=== PATIENT | female | born 1965 | race Caucasian/White ===

== ENCOUNTER 2018-12-11 10:59 | Emergency (ER) | payer OTHER ==
[2018-12-11] MEDS ORDERED: HYDROXYZINE PAMOATE 25 MG CAPSULE PO ONE (11:20)
[2018-12-11] MEDS ORDERED: FAMOTIDINE 20 MG TABLET PO ONE (11:20)
--- NOTE | 2018-12-11 11:24 | ER Document Report ---
ED Medical Screen (RME) - General Chief Complaint: Chest Tightness Stated Complaint: POSSIBLE ALLERGIC REACTION Time Seen by Provider: 12/11/18 11:20 Mode of Arrival: Ambulatory Information source: Patient Notes: 52-year-old female presented to ED for chest tightness no shortness of breath. She states her skin is been sensitive and itchy for a while. 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 She is also had a vertical sleeve on her stomach a while back. Is due to arthritis and overweight. She has had bunions removed and a breast biopsy. She is also had a hysterectomy and a bladder mesh. She states she takes vitamins and yesterday who felt her skin was very sensitive and itchy so she took 50 mg of Benadryl. She states she took her vitamins this morning and is currently became very sensitive again chest was tight for him for 25 mg of Benadryl and came to the emergency room to find out why her chest was so tight. Patient is alert oriented respirations regular and unlabored speaking in full sentences. I have greeted and performed a rapid initial assessment of this patient. A comprehensive ED assessment and evaluation of the patient, analysis of test results and completion of medical decision making process will be conducted by an additional ED providers. Dictation of this chart was performed using voice recognition software; therefore, there may be some unintended grammatical errors. TRAVEL OUTSIDE OF THE [place] IN LAST 30 DAYS: No - Related Data Allergies/Adverse Reactions: Penicillins Allergy (Mild, Verified 12/11/18 11:01) Pruritis Sulfa (Sulfonamide Antibiotics) Allergy (Mild, Verified 12/11/18 11:01) Pruritis shellfish derived [Shellfish Derived] Allergy (Verified 12/11/18 11:01) hives,eyes swell Past Medical History - Past Medical History Cardiac Medical History: Reports: Hx Hypercholesterolemia, Hx Hypertension Denies: Hx Coronary Artery Disease, Hx Heart Attack Pulmonary Medical History: Denies: Hx Asthma, Hx Bronchitis, Hx COPD, Hx Pneumonia Neurological Medical History: Denies: Hx Cerebrovascular Accident, Hx Seizures Renal/ Medical History: Reports: Hx Ovarian Cysts. Denies: Hx End Stage Renal Disease, Hx Kidney Stones, Hx Peritoneal Dialysis, Hx Pelvic Inflammatory Disease Malignancy Medical History: Denies: Hx Breast Cancer, Hx Cervical Cancer, Hx Leukemia, Hx Ovarian Cancer GI Medical History: Denies: Hx Crohn's Disease, Hx Gastroesophageal Reflux Disease, Hx Hiatal Hernia, Hx Irritable Bowel, Hx Liver Failure, Hx Pancreatitis, Hx Ulcer Musculoskeltal Medical History: Reports Hx Arthritis - feet,hands,, Denies Hx Fibromyalgia, Denies Hx Muscular Dystrophy Psychiatric Medical History: Reports: Hx Depression - sometimes will over eat when depressed Denies: Hx Bipolar Disorder, Hx Post Traumatic Stress Disorder, Hx Schizophrenia Traumatic Medical History: Denies: Hx Fractures Infectious Medical History: Denies: Hx HIV Past Surgical History: Reports: Hx Cholecystectomy - has abdominal hernia, Hx Orthopedic Surgery - fartun foot. Denies: Hx Appendectomy, Hx Bowel Surgery, Hx Section, Hx Colostomy, Hx Coronary Artery Bypass Graft, Hx Gastric Bypass Surgery, Hx Herniorrhaphy, Hx Hysterectomy, Hx Mastectomy, Hx Open Heart Surgery, Hx Pacemaker, Hx Tonsillectomy, Hx Tubal Ligation - Immunizations Hx Diphtheria, Pertussis, Tetanus Vaccination: No Physical Exam - Vital signs Vitals: Temp Pulse Resp BP Pulse Ox 97.8 F 72 16 107/89 H 100 12/11/18 11:09 12/11/18 11:09 12/11/18 11:09 12/11/18 11:09 12/11/18 11:09 Course - Vital Signs Vital signs: Temp Pulse Resp BP Pulse Ox 97.8 F 72 16 107/89 H 100 12/11/18 11:09 12/11/18 11:09 12/11/18 11:09 12/11/18 11:09 12/11/18 11:09
[2018-12-11 11:53] LABS: ABSOLUTE EOSINOPHILS # (AUTO) 0.1 10^3/uL (0.0-0.6); ABSOLUTE LYMPHOCYTES (AUTO) 2.5 10^3/uL (0.5-4.7); ABSOLUTE MONOCYTES (AUTO) 0.5 10^3/uL (0.1-1.4); ABSOLUTE NEUT (AUTO) 3.8 10^3/uL (1.7-8.2); BASOPHILS % (AUTO) 0.5 % (0-2); EOSINOPHILS % (AUTO) 1.2 % (0-6); HEMATOCRIT 49.5 % (36.0-47.0); HEMOGLOBIN 16.7 g/dL (12.0-15.5); LYMPHOCYTES % (AUTO) 36.3 % (13-45); MEAN CORPUSCULAR HGB CONC 33.6 g/dL (32.0-36.0); MEAN CORPUSCULAR VOLUME 92 fl (80-97); MONOCYTES % (AUTO) 6.9 % (3-13); PLATELET COUNT 326 10^3/uL (150-450); RED BLOOD COUNT 5.36 10^6/uL (3.72-5.28); RED CELL DISTRIBUTION WIDTH 13.7 % (11.5-14.0); SEGMENTED NEUTROPHILS % (AUTO) 55.1 % (42-78); TOTAL CELLS COUNTED % (AUTO) 100 %; WHITE BLOOD COUNT 6.9 10^3/uL (4.0-10.5)
[2018-12-11 12:03] LABS: APPEARANCE,URINE CLOUDY; BILIRUBIN,URINE NEGATIVE (NEGATIVE); COLOR,URINE AMBER; GLUCOSE, URINE NEGATIVE (NEGATIVE); KETONES,URINE NEGATIVE (NEGATIVE); LEUKOCYTE ESTERASE,URINE NEGATIVE (NEGATIVE); NITRITE,URINE NEGATIVE (NEGATIVE); PROTEIN,URINE NEGATIVE (NEGATIVE); URINE SPECIFIC GRAVITY 1.014; UROBILINOGEN,URINE NEGATIVE mg/dL (<2.0)
[2018-12-11 12:06] LABS: ALANINE AMINOTRANSFERASE 26 U/L (9-52); ALBUMIN 4.7 g/dL (3.5-5.0); ALKALINE PHOSPHATASE 50 U/L (38-126); ANION GAP 10 (5-19); ASPARTATE AMINO TRANSFERASE 31 U/L (14-36); BILIRUBIN,DIRECT 0.2 mg/dL (0.0-0.4); BILIRUBIN,TOTAL 1.5 mg/dL (0.2-1.3); BLOOD UREA NITROGEN 12 mg/dL (7-20); CALCIUM 10.2 mg/dL (8.4-10.2); CARBON DIOXIDE 27 mmol/L (22-30); CHLORIDE 105 mmol/L (98-107); GLUCOSE 82 mg/dL (75-110); POTASSIUM 4.2 mmol/L (3.6-5.0); SODIUM 142.2 mmol/L (137-145)
[2018-12-11 12:17] LABS: CREATINE KINASE MB 0.55 ng/mL (<4.55)
[2018-12-11 12:19] LABS: TROPONIN I < 0.012 ng/mL
--- NOTE | 2018-12-11 12:21 | RADIOLOGY REPORT (SQ) ---
EXAM DESCRIPTION: CHEST 2 VIEWS COMPLETED DATE/TIME: 12/11/2018 11:51 am REASON FOR STUDY: chest tightness COMPARISON: None. EXAM PARAMETERS: NUMBER OF VIEWS: two views TECHNIQUE: Digital Frontal and Lateral radiographic views of the chest acquired. RADIATION DOSE: NA LIMITATIONS: none FINDINGS: LUNGS AND PLEURA: No opacities, masses or pneumothorax. No pleural effusion. MEDIASTINUM AND HILAR STRUCTURES: No masses or contour abnormalities. HEART AND VASCULAR STRUCTURES: Heart normal size. No evidence for failure. BONES: No acute findings. HARDWARE: Clips in the upper abdomen. Breast implants. OTHER: No other significant finding. IMPRESSION: NO ACUTE RADIOGRAPHIC FINDING IN THE CHEST. TECHNICAL DOCUMENTATION: JOB ID: [id number] [employer]- All Rights Reserved Reading location - IP/workstation name: [email or web address]
--- NOTE | 2018-12-11 13:06 | ER Document Report ---
ED General - General Chief Complaint: Chest Tightness Stated Complaint: POSSIBLE ALLERGIC REACTION Time Seen by Provider: 12/11/18 11:20 Mode of Arrival: Ambulatory Notes: Patient says that she had an episode last night of tightness in her chest along with itching and felt as if she was going to pass out. She took a couple of Benadryl and her symptoms subsided and she was able to sleep. She woke up this morning and felt okay but shortly thereafter, about a 45 or 9 AM, patient said that she felt as if her head was on fire. She had this hot burning sensation and went around her head and down her entire body. Her skin was actually pink- red in color like a light sunburn. Her took pictures of her legs and face and this condition. It subsided now. The patient said that she also felt shortness of breath. She took her morning medicines and took another Benadryl. In triage, patient was given Pepcid 20 mg and Vistaril 25 mg p.o. Her symptoms have now resolved. Patient has not had any new medications, foods, etc. introduced into her diet. She does have some frequent allergies, especially to shellfish, but takes Claritin on a regular basis.. Also allergic to lavender oil. Does not recall eating any shellfish in the past few days. Patient remembers taking a couple of swallows of some liquid out of a cup last night that had been washed in some solution by her daughter. She noticed it tas aaron so p.m. so she rinsed the cup out further before she drank anymore. Does not know the name of the product. 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 Not sure what the pathology is of that bone but it is being reviewed in [place] at this time. Patient has had gastric sleeve procedure. TRAVEL OUTSIDE OF THE [place] IN LAST 30 DAYS: No - Related Data Allergies/Adverse Reactions: Penicillins Allergy (Mild, Verified 12/11/18 11:01) Pruritis Sulfa (Sulfonamide Antibiotics) Allergy (Mild, Verified 12/11/18 11:01) Pruritis shellfish derived [Shellfish Derived] Allergy (Verified 12/11/18 11:01) hives,eyes swell Past Medical History - General Information source: Patient - Social History Smoking Status: Never Smoker Family History: Reviewed & Not Pertinent Patient has suicidal ideation: No Patient has homicidal ideation: No - Past Medical History Cardiac Medical History: Reports: Hx Hypercholesterolemia, Hx Hypertension Renal/ Medical History: Reports: Hx Ovarian Cysts GI Medical History: Musculoskeletal Medical History: Reports Hx Arthritis - feet,hands, Psychiatric Medical History: Reports: Hx Depression - sometimes will over eat when depressed Traumatic Medical History: Denies: Hx Fractures Infectious Medical History: Past Surgical History: Reports: Hx Cholecystectomy - has abdominal hernia, Hx Gastric Bypass Surgery, Hx Orthopedic Surgery - fartun foot - Immunizations Hx Diphtheria, Pertussis, Tetanus Vaccination: No Review of Systems - Review of Systems Notes: REVIEW OF SYSTEMS: CONSTITUTIONAL : Denies fever. EENT: Denies eye, ear, nose or mouth or throat pain or other symptoms. CARDIOVASCULAR: See HPI. RESPIRATORY: Denies cough, chest congestion, but had some shortness of breath. GASTROINTESTINAL: Denies abdominal pain or nausea, vomiting, or diarrhea. GENITOURINARY: Denies difficulty or painful urinating, urinary frequency, blood in urine. MUSCULOSKELETAL: Denies back or neck pain. Denies joint pain or swelling. SKIN: Had a generalized erythematous rash that look like sunburn. No hives. Skin felt like it was "on fire". NEUROLOGICAL: Denies LOC or altered mental status. Denies headache. Denies sensory loss or motor deficits. ALL OTHER SYSTEMS REVIEWED AND NEGATIVE. Physical Exam - Vital signs Vitals: Temp Pulse Resp BP Pulse Ox 97.8 F 72 16 107/89 H 100 12/11/18 11:09 12/11/18 11:09 12/11/18 11:09 12/11/18 11:09 12/11/18 11:09 Interpretation: Normal Notes: PHYSICAL EXAMINATION: GENERAL: Well-appearing, in no acute distress. Vital signs are all normal. Patient very comfortably knitting. HEAD: Atraumatic, normocephalic. EYES: Pupils equal round and reactive to light, extraocular movements intact. ENT: oropharynx clear without exudates. Moist mucous membranes. NECK: Normal range of motion, supple. LUNGS: Breath sounds clear and equal bilaterally. HEART: Regular rate and rhythm without murmurs. ABDOMEN: Soft, nontender. No guarding or rebound. No masses. BACK: No tenderness throughout entire back. EXTREMITIES: Normal range of motion without pain. NEUROLOGICAL: Normal speech, normal gait. Normal sensory, motor, and reflex exams. Awake, alert, and oriented x3. Cranial nerves normal. PSYCH: Normal mood, normal affect. SKIN: Warm, dry, no rashes. Course - Re-evaluation Re-evalutation: 12/11/18 13:16 Patient was given Pepcid 20 mg p.o. and Vistaril 25 mg p.o. upon arrival. All the lab studies are essentially normal. Patient has a normal EKG. Chest x- ray is also normal. - Vital Signs Vital signs: Temp Pulse Resp BP Pulse Ox 97.8 F 72 16 107/89 H 100 12/11/18 11:09 12/11/18 11:09 12/11/18 11:09 12/11/18 11:09 12/11/18 11:09 - Laboratory Result Diagrams: 12/11/18 11:32 12/11/18 11:32 Laboratory results interpreted by la: 12/11/18 12/11/18 11:32 11:32 RBC 5.36 H Hgb 16.7 H Hct 49.5 H Total Bilirubin 1.5 H - Diagnostic Test Radiology results interpreted by me: 12/11/18 13:17 Chest x-ray is normal. - EKG Interpretation by Ct EKG shows normal: Sinus rhythm Rate: Normal Rhythm: NSR Additional EKG results interpreted by la: 12/11/18 13:17 EKG is normal. No STEMI. Discharge - Discharge Clinical Impression: Allergic reaction Condition: Stable Disposition: HOME, SELF-CARE Additional Instructions: ACUTE ALLERGIC REACTION: Your symptoms are due to an allergic reaction. Allergy can cause hives, swelling of the hands, feet, and face, hoarseness, and difficulty swallowing or breathing. It may be due to exposure to medication, animal dander, foods, infection, or insect bites. Medication is a common cause, even when prior use of this same medication caused no problems. Acute treatment may include adrenalin and antihistamines. Usually, the specific allergic agent can't be identified unless repeated episodes occur. Home treatment includes the following: (1) Stop any suspicious medications. This will be discussed with you. (2) Oral antihistamines for the next four to five days. Example, diphenhydramine (Benadryl) every four hours. (3) You may also use cimetidine (Tagamet), ranitidine (Zantac), or famotidine (Pepcid) every four hours if diphenhydramine is not controlling itching and hives. (4) Avoid aspirin until the hives completely disappear. (5) Avoid hot baths or showers until the hives are completely gone. Call the doctor if faintness, difficulty swallowing, tightness in the chest, or wheezing occurs. STEROID MEDICATION: You have been given a medicine of the cortisone/steroid class. This medication is used to control inflammation or allergy. It is usually only given for a short period of time, until the acute process subsides. There are usually no side effects from short-term use of cortisone-like medications. Some persons feel an increased sense of well-being and are not sl eepy at bedtime. Long-term use of cortisone medications is best avoided, unless required for a severe condition. If your condition does not remit, or relapses after the course of corticosteroid medication, you should consult your physician. ACID-SUPPRESSING MEDICATION: You have a prescription for medicine which reduces the stomach's secretion of acid. Examples include Zantac, Tagament, and Pepcid. These drugs are often used to allow healing of ulcers or esophagitis. They may be needed to prevent recurrence of ulcers in some patients, or to prevent damage from acid reflux in the esophagus. Take all medication as prescribed, even after the pain is gone. Regular antacids may be added as needed if you have symptoms while taking this medicine. These medications sometimes are prescribed for allergic reactions because they have anti-histaminic effects and relieve the rash and itching of the reaction. There are usually no side effects from this medication. But, in rare cases and particularly in the elderly, serious problems can occur. Contact your doctor if there is fever, rash, hallucinations, confusion, or unusual bruising. Contact your doctor at once if you develop lightheadedness, black or bloody stool, or bloody vomitus. ANTIHISTAMINES: An antihistamine has been given and/or prescribed to control your symptoms. Antihistamines are used for many reasons, including itching, watering eyes, runny nose, allergic swelling, hives, and insect stings. Antihistamines may cause drowsiness, especially with the first dose. Do not operate machinery or drive while under the effects of the medication. Other common side effects include dry mouth and eyes. In older persons, antihistamines can occasionally cause urinary retention, constipation, and trouble focusing the eyes. Do not combine the medication with alcohol, or with any other medication without talking to your doctor. USE OF DIPHENHYDRAMINE: The use of diphenhydramine (Benadryl) has been recommended to control allergic symptoms. The 25 mg strength is available over- the-counter, as well as the elixir. This antihistamine is used for many symptoms. It's useful for itching, watering eyes and nose, allergic swelling, hives, and insect stings. The medication can be repeated four times daily. Age Elixir (12.5 mg/tsp) 25 mg pill 2-3 yr 1/2 tsp 4-8 yr 1 tsp 9-14 yr 2 tsp one tab adult 1-2 tabs Antihistamines may cause drowsiness, especially with the first dose. Do not operate machinery or drive while under the effects of the medication. Do not combine the medication with alcohol, or with any other medication without t alking to your doctor. FOLLOW-UP CARE: If you have been referred to a physician for follow-up care, call the physicians office for an appointment as you were instructed or within the next two days. If you experience worsening or a significant change in your symptoms, notify the physician immediately or return to the Emergency Department at any time for re-evaluation. Prescriptions: Epinephrine [Epipen] 0.3 mg IJ PRN PRN #1 auto.injct PRN Reason: Prednisone [Deltasone 10 mg Tablet] 10 mg PO ASDIR PRN #21 tablet PRN Reason:
[2018-12-11 13:19] VITALS: BP 106/72
--- NOTE | 2018-12-11 15:15 | EKG REPORT ---
SEVERITY:- NORMAL ECG - SINUS RHYTHM : Confirmed by: Scooter Duran MD 11-Dec-2018 15:14:11
== END 2018-12-11 13:19 | disposition home or self-care (01) ==
LOC: ER 10:59
DX: T78.40XA Allergy, unspecified, initial encounter (principal); R07.89 Other chest pain; L29.9 Pruritus, unspecified; R20.8 Other disturbances of skin sensation; R21 Rash and other nonspecific skin eruption; R06.02 Shortness of breath; X58.XXXA Exposure to other specified factors, initial encounter; I10 Essential (primary) hypertension; Z79.899 Other long term (current) drug therapy; Z98.84 Bariatric surgery status; Z91.013 Allergy to seafood; Z88.0 Allergy status to penicillin; Z88.2 Allergy status to sulfonamides
CPT/HCPCS: 36415; 71046; 80053; 81001; 82553; 84484; 85025; 93005; 93010; 99284

== ENCOUNTER → 2019-03-17 | Outpatient (CLI) | payer OTHER ==
--- NOTE | 2019-03-17 14:44 | RADIOLOGY REPORT (SQ) ---
EXAM DESCRIPTION: CT BONE LENGTH COMPLETED DATE/TIME: 03/17/2019 1:50 pm REASON FOR STUDY: (Q72.819)CONGENITAL SHORTENING OF UNSPECIFIED LOWER LIMB Q72.819 CONGENITAL SHORT ENING OF UNSPECIFIED LOWER LIMB COMPARISON: None. TECHNIQUE: CT scanogram of the bilateral lower extremities is performed including pelvis to ankles. Measurements of femur, tibia, and entire lower extremities performed by the radiologist and saved to PACS. All CT scanners at this facility use dose modulation, iterative reconstruction, and/or weight based d osing when appropriate to reduce radiation dose to as low as reasonably achievable (ALARA). [facility]: Dose Right [facility]: CareDose [facility]: Dose Right [facility]: Teradose 4D [facility]: GameWith RADIATION DOSE: mGy. LIMITATIONS: None. FINDINGS: RIGHT: FEMUR: 44.3 cm. TIBIA: 35.1 cm. TOTAL RIGHT LOWER EXTREMITY LENGTH: 80.5 cm. LEFT: FEMUR: 43.6 cm. TIBIA: 35 cm. TOTAL LEFT LOWER EXTREMITY LENGTH: 80 cm. IMPRESSION: LEG LENGTH MEASUREMENTS DETAILED ABOVE. TECHNICAL DOCUMENTATION: JOB ID: [id number] Quality ID # [id number]: Final reports with documentation of one or more dose reduction techniques (e.g., Au tomated exposure control, adjustment of the mA and/or kV according to patient size, use of iterative reconstruction technique) 2010 [employer]- All Rights Reserved Reading location - IP/workstation name: [email or web address]
== END ==
LOC: RAD 13:32
PROVIDERS: ATTEND Podiatrist Foot & Ankle Surgery
DX: Q72.819 Congenital shortening of unspecified lower limb (principal)
CPT/HCPCS: 77073

== ENCOUNTER 2019-06-01 15:52 | Emergency (ER) | payer OTHER ==
--- NOTE | 2019-06-01 16:26 | ER Document Report ---
ED Medical Screen (RME) - General Chief Complaint: Weakness Stated Complaint: WEAKNESS/NECK PAIN Time Seen by Provider: 06/01/19 16:18 Primary Care Provider: FLORIDALMA FARRELL PA-C [Primary Care Provider] - Follow up as needed Mode of Arrival: Ambulatory Information source: Patient Notes: 53-year-old female presents to ED for complaint of neck pain that is been going on for since Thursday. Body aches nodule to the left side of the skull, bone pain, hot and cold flashes with no fever. 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 She states last week on Thursday she got the shingles and flu shot and she already had cold symptoms. She states she went back to the doctor on Thursday because she was still feeling pretty bad. She was feeling worse today so she went into the doctor again today and they sent her to the emergency room patient states that she has had this nodule for a while on the side of her head and the doctor was supposed to put in an MRI. She states when she went in Thursday the doctor said she was going to cancel the MRI and put in for CT and she has still not had the CT. I have greeted and performed a rapid initial assessment of this patient. A comprehensive ED assessment and evaluation of the patient, analysis of test results and completion of medical decision making process will be conducted by an additional ED providers. TRAVEL OUTSIDE OF THE [place] IN LAST 30 DAYS: No - Related Data Allergies/Adverse Reactions: Penicillins Allergy (Mild, Verified 12/11/18 11:01) Pruritis Sulfa (Sulfonamide Antibiotics) Allergy (Mild, Verified 12/11/18 11:01) Pruritis shellfish derived [Shellfish Derived] Allergy (Verified 12/11/18 11:01) hives,eyes swell Past Medical History - Past Medical History Cardiac Medical History: Reports: Hx Hypercholesterolemia, Hx Hypertension Denies: Hx Coronary Artery Disease, Hx Heart Attack Pulmonary Medical History: Denies: Hx Asthma, Hx Bronchitis, Hx COPD, Hx Pneumonia Neurological Medical History: Denies: Hx Cerebrovascular Accident, Hx Seizures Renal/ Medical History: Reports: Hx Ovarian Cysts. Denies: Hx End Stage Renal Disease, Hx Kidney Stones, Hx Peritoneal Dialysis, Hx Pelvic Inflammatory Disease Malignancy Medical History: Denies: Hx Breast Cancer, Hx Cervical Cancer, Hx Leukemia, Hx Ovarian Cancer GI Medical History: Denies: Hx Crohn's Disease, Hx Gastroesophageal Reflux Disease, Hx Hiatal Hernia, Hx Irritable Bowel, Hx Liver Failure, Hx Pancreatitis, Hx Ulcer Musculoskeltal Medical History: Reports Hx Arthritis - feet,hands,, Denies Hx Fibromyalgia, Denies Hx Muscular Dystrophy Psychiatric Medical History: Reports: Hx Depression - sometimes will over eat when depressed Denies: Hx Bipolar Disorder, Hx Post Traumatic Stress Disorder, Hx Schizophrenia Traumatic Medical History: Denies: Hx Fractures Infectious Medical History: Denies: Hx HIV Past Surgical History: Reports: Hx Cholecystectomy - has abdominal hernia, Hx Gastric Bypass Surgery, Hx Orthopedic Surgery - fartun foot. Denies: Hx Appendectomy, Hx Bowel Surgery, Hx Section, Hx Colostomy, Hx Coronary Artery Bypass Graft, Hx Herniorrhaphy, Hx Hysterectomy, Hx Mastectomy, Hx Open Heart Surgery, Hx Pacemaker, Hx Tonsillectomy, Hx Tubal Ligation - Immunizations Hx Diphtheria, Pertussis, Tetanus Vaccination: No Physical Exam - Vital signs Vitals: Temp Pulse Resp BP Pulse Ox 97.5 F 65 16 122/78 100 06/01/19 16:12 06/01/19 16:12 06/01/19 16:12 06/01/19 16:12 06/01/19 16:12 Course - Vital Signs Vital signs: Temp Pulse Resp BP Pulse Ox 97.5 F 65 16 122/78 100 06/01/19 16:12 06/01/19 16:12 06/01/19 16:12 06/01/19 16:12 06/01/19 16:12 Doctor's Discharge - Discharge Referrals: FLORIDALMA FARRELL PA-C [Primary Care Provider] - Follow up as needed
[2019-06-01] MEDS ORDERED: ACETAMINOPHEN 325 MG TABLET PO ONE (16:27)
[2019-06-01 17:28] LABS: ABSOLUTE BASOPHILS # (AUTO) 0.1 10^3/uL (0.0-0.2); ABSOLUTE EOSINOPHILS # (AUTO) 0.2 10^3/uL (0.0-0.6); ABSOLUTE LYMPHOCYTES (AUTO) 2.8 10^3/uL (0.5-4.7); ABSOLUTE MONOCYTES (AUTO) 0.5 10^3/uL (0.1-1.4); ABSOLUTE NEUT (AUTO) 3.6 10^3/uL (1.7-8.2); BASOPHILS % (AUTO) 0.9 % (0-2); EOSINOPHILS % (AUTO) 3.1 % (0-6); HEMATOCRIT 43.4 % (36.0-47.0); LYMPHOCYTES % (AUTO) 38.8 % (13-45); MEAN CORPUSCULAR HGB CONC 34.5 g/dL (32.0-36.0); MEAN CORPUSCULAR VOLUME 93 fl (80-97); MONOCYTES % (AUTO) 7.3 % (3-13); PLATELET COUNT 456 10^3/uL (150-450); RED BLOOD COUNT 4.69 10^6/uL (3.72-5.28); RED CELL DISTRIBUTION WIDTH 12.5 % (11.5-14.0); SEGMENTED NEUTROPHILS % (AUTO) 49.9 % (42-78); TOTAL CELLS COUNTED % (AUTO) 100 %; WHITE BLOOD COUNT 7.3 10^3/uL (4.0-10.5)
[2019-06-01 17:33] LABS: APPEARANCE,URINE SLIGHTLY-CLOUDY; BILIRUBIN,URINE NEGATIVE (NEGATIVE); COLOR,URINE YELLOW; GLUCOSE, URINE NEGATIVE (NEGATIVE); KETONES,URINE NEGATIVE (NEGATIVE); PROTEIN,URINE NEGATIVE (NEGATIVE); URINE SPECIFIC GRAVITY 1.023; UROBILINOGEN,URINE NEGATIVE mg/dL (<2.0)
[2019-06-01 17:45] LABS: ALBUMIN 4.6 g/dL (3.5-5.0); ALKALINE PHOSPHATASE 49 U/L (38-126); ANION GAP 9 (5-19); ASPARTATE AMINO TRANSFERASE 33 U/L (14-36); BILIRUBIN,TOTAL 0.3 mg/dL (0.2-1.3); BLOOD UREA NITROGEN 16 mg/dL (7-20); CALCIUM 9.6 mg/dL (8.4-10.2); CARBON DIOXIDE 28 mmol/L (22-30); CHLORIDE 101 mmol/L (98-107); GLUCOSE 85 mg/dL (75-110); POTASSIUM 4.2 mmol/L (3.6-5.0); TOTAL PROTEIN 7.6 g/dL (6.3-8.2)
--- NOTE | 2019-06-01 21:32 | ER Document Report ---
ED General - General Chief Complaint: General Weakness Stated Complaint: WEAKNESS/NECK PAIN Time Seen by Provider: 06/01/19 16:18 Primary Care Provider: FLORIDALMA FARRELL PA-C [NO LOCAL MD] - Follow up in 1 week Mode of Arrival: Ambulatory TRAVEL OUTSIDE OF THE [place] IN LAST 30 DAYS: No - HPI Notes: 53-year-old female to the emergency department with complaints of fatigue as well as left-sided headache and neck pain that has been ongoing for over 1 week. She states that her symptoms started after she got the flu and shingles shot. 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 In October of this year Dr. Sergo Garcia [place] on the left side and found her to have fibrous dysplasia. She is supposed to have yearly monitoring with CT scan. She states that she feels like that side of the school is swollen as well as her neck. She states that she saw her primary care today and they asked her to come to the emergency department for further CT scan. She denies any fevers or chills. She states that she has been experiencing severe fatigue. She denies any other complaints today - Related Data Allergies/Adverse Reactions: Penicillins Allergy (Mild, Verified 12/11/18 11:01) Pruritis Sulfa (Sulfonamide Antibiotics) Allergy (Mild, Verified 12/11/18 11:01) Pruritis shellfish derived [Shellfish Derived] Allergy (Verified 12/11/18 11:01) hives,eyes swell Past Medical History - General Information source: Patient - Social History Smoking Status: Never Smoker Chew tobacco use (# tins/day): No Frequency of alcohol use: None Drug Abuse: None Family History: Reviewed & Not Pertinent Patient has suicidal ideation: No Patient has homicidal ideation: No - Past Medical History Cardiac Medical History: Reports: Hx Hypercholesterolemia, Hx Hypertension Denies: Hx Coronary Artery Disease, Hx Heart Attack Pulmonary Medical History: Denies: Hx Asthma, Hx Bronchitis, Hx COPD, Hx Pneumonia Neurological Medical History: Denies: Hx Cerebrovascular Accident, Hx Seizures Renal/ Medical History: Reports: Hx Ovarian Cysts. Denies: Hx End Stage Renal Disease, Hx Kidney Stones, Hx Peritoneal Dialysis, Hx Pelvic Inflammatory Disease Malignancy Medical History: Denies: Hx Breast Cancer, Hx Cervical Cancer, Hx Rocío kemia, Hx Ovarian Cancer GI Medical History: Denies: Hx Crohn's Disease, Hx Gastroesophageal Reflux Disease, Hx Hiatal Hernia, Hx Irritable Bowel, Hx Liver Failure, Hx Pancrea titis, Hx Ulcer Musculoskeletal Medical History: Reports Hx Arthritis - feet,hands,, Denies Hx Fibromyalgia, Denies Hx Muscular Dystrophy Psychiatric Medical History: Reports: Hx Depression - sometimes will over eat when depressed Denies: Hx Bipolar Disorder, Hx Post Traumatic Stress Disorder, Hx Schizophrenia Traumatic Medical History: Denies: Hx Fractures Infectious Medical History: Denies: Hx HIV Past Surgical History: Reports: Hx Cholecystectomy - has abdominal hernia, Hx Gastric Bypass Surgery, Hx Orthopedic Surgery - fartun foot. Denies: Hx Appendectomy, Hx Bowel Surgery, Hx Section, Hx Colostomy, Hx Coronary Artery Bypass Graft, Hx Herniorrhaphy, Hx Hysterectomy, Hx Mastectomy, Hx Open Heart Surgery, Hx Pacemaker, Hx Tonsillectomy, Hx Tubal Ligation - Immunizations Hx Diphtheria, Pertussis, Tetanus Vaccination: No Review of Systems - Review of Systems Constitutional: Malaise. denies: Chills, Fever EENT: denies: Ear pain, Throat pain Cardiovascular: denies: Chest pain, Palpitations, Orthopnea, Dyspnea, Syncope, Dizziness, Lightheaded Respiratory: denies: Cough, Short of breath Gastrointestinal: denies: Abdominal pain, Diarrhea, Nausea, Vomiting Musculoskeletal: Neck pain Neurological/Psychological: Headaches -: Yes All other systems reviewed and negative Physical Exam - Vital signs Vitals: Temp Pulse Resp BP Pulse Ox 97.5 F 65 16 122/78 100 06/01/19 16:12 06/01/19 16:12 06/01/19 16:12 06/01/19 16:12 06/01/19 16:12 Interpretation: Normal - General General appearance: Appears well, Alert - HEENT Head: Normocephalic, Atraumatic Eyes: Normal, Scleral icterus Pupils: PERRL Ears: Normal External canal: Normal Tympanic membrane: Normal Sinus: Normal Nasal: Normal Mouth/Lips: Normal Mucous membranes: Normal Pharynx: Normal. No: Potential airway comprom. Neck: Normal. No: Lymphadenopathy, Meningismus, Supple Notes: to the posterior neck there is mild TTP. Patient reports that it is swollen. There isn't yehuda discernible edema. No skin changes. No step off or deformity. There is no nuchal rigidity. Along the left side of the temporal bone, there is noted craniotomy scar with slightly raised scar. No step off or crepitus. - Respiratory Respiratory status: No respiratory distress Chest status: Nontender Breath sounds: Normal Chest palpation: Normal - Cardiovascular Rhythm: Regular Heart sounds: Normal auscultation Murmur: No - Abdominal Inspection: Normal Distension: No distension Bowel sounds: Normal Tenderness: Nontender Organomegaly: No organomegaly - Back Back: Normal, Nontender - Extremities General upper extremity: Normal inspection, Nontender, Normal color, Normal ROM, Normal temperature General lower extremity: Normal inspection, Nontender, Normal color, Normal ROM, Normal temperature, Normal weight bearing - Neurological Neuro grossly intact: Yes Cognition: Normal Orientation: AAOx4 Mario Coma Scale Eye Opening: Spontaneous Girard Coma Scale Verbal: Oriented Mario Coma Scale Motor: Obeys Commands Girard Coma Scale Total: 15 Speech: Normal Motor strength normal: LUE, RUE, LLE, RLE Sensory: Normal - Psychological Associated symptoms: Normal affect, Normal mood - Skin Skin Temperature: Warm Skin Moisture: Dry Skin Color: Normal Course - Re-evaluation Re-evalutation: Impression: Neck pain, headache. Labs are reassuring. Imaging studies reassuring. Patient does not appear toxic and her vital signs are reassuring. Doubt infectious etiology. Will have her follow up further with her PCP and neurosurgeon who performed her craniotomy. Patient agrees with the plan. - Vital Signs Vital signs: Temp Pulse Resp BP Pulse Ox 97.7 F 62 16 130/86 H 98 06/02/19 00:34 06/02/19 00:34 06/02/19 00:34 06/02/19 00:34 06/02/19 00:34 - Laboratory Result Diagrams: 06/01/19 17:00 06/01/19 17:00 Laboratory results interpreted by me: 06/01/19 17:00 Plt Count 456 H - Diagnostic Test Radiology reviewed: Image reviewed, Reports reviewed Discharge - Discharge Clinical Impression: Neck pain Headache Qualifiers: Headache type: unspecified Headache chronicity pattern: acute headache Intractability: not intractable Qualified Code(s): R51 - Headache Condition: Stable Disposition: HOME, SELF-CARE Additional Instructions: FOLLOW UP WITH YOUR PRIMARY CARE AND NEUROSURGEON WITHOUT FAIL. TAKE MEDICINES PRESCRIBED. RETURN IF SYMPTOMS WORSEN. Prescriptions: Cyclobenzaprine HCl [Flexeril 5 mg Tablet] 1 - 2 tab PO TID PRN #15 tablet PRN Reason: Referrals: FLORIDALMA FARRELL PA-C [NO LOCAL MD] - Follow up in 1 week
--- NOTE | 2019-06-01 23:16 | RADIOLOGY REPORT (SQ) ---
EXAM: CT HEAD WITHOUT IV CONTRAST, CT CERVICAL SPINE WITHOUT IV CONTRAST CLINICAL INDICATION: 53-year-old female with posterior neck pain and swelling. COMPARISON: None. TECHNIQUE: CT brain without contrast. This exam was performed according to our departmental dose optimization program which includes use of automated exposure control, adjustment of the mA and/or kV according to patient size and/or use of iterative reconstruction technique. FINDINGS: The ventricles, sulci, and cisterns are symmetric and unremarkable. The souza-white matter differentiation is preserved. There is no mass effect, midline shift, intra- or extra-axial fluid collection/acute hemorrhage. The osseous structures reveal postoperative change of a craniotomy of the LEFT pterional region otherwise unremarkable. The paranasal sinuses and mastoid air cells are clear. IMPRESSION: 1. No acute intracranial abnormalities. TECHNIQUE: Cervical spine CT was performed without contrast. Multiplanar reformatted images were provided. This exam was performed according to our departmental dose optimization program which includes use of automated exposure control, adjustment of the mA and/or kV according to patient size and/or use of iterative reconstruction technique. COMPARISON: None. FINDINGS: There is normal alignment of the cervical spine without fracture or subluxation. The facets are normal in alignment bilaterally. The posterior elements including the spinous processes are intact. Straightening of the cervical spine which may be secondary to positioning for the examination. Morphology and attenuation of the vertebral bodies and intervertebral disk spaces is within normal limits. The pre-and paravertebral soft tissues are within normal limits. IMPRESSION: 1. Straightening of the cervical spine which may be secondary to positioning for the examination versus spasm. 2. No fracture or acute subluxation.
[2019-06-01] MEDS ORDERED: KETOROLAC TROMETHAMINE 60 MG/2 ML SDV IM ONE (23:54)
[2019-06-01] MEDS ORDERED: CYCLOBENZAPRINE HCL 10 MG TABLET PO ONE (23:54)
[2019-06-02 01:00] VITALS: BP 130/86
== END 2019-06-02 00:34 | disposition home or self-care (01) ==
LOC: ER 15:52
DX: M54.2 Cervicalgia (principal); R53.1 Weakness; Z88.0 Allergy status to penicillin; Z88.2 Allergy status to sulfonamides; Z91.013 Allergy to seafood
CPT/HCPCS: 99284; 96372; 36415; 83690; 84443; 85025; 80053; 81001; 70450; 72125; J1885

== ENCOUNTER → 2019-09-07 | Outpatient (CLI) | payer OTHER | LOC: OD 10:24 | PROVIDERS: ATTEND Otolaryngology | DX: J30.9 Allergic rhinitis, unspecified (principal) | CPT/HCPCS: 36415; 82785; 86003 ==

== ENCOUNTER → 2019-09-13 | Outpatient (CLI) | payer OTHER ==
--- NOTE | 2019-09-13 12:40 | NEURO WORKBENCH EEG REPORT ---
EEG Report Patient: Marcy Montiel ID: [id number] Referring Doctor: Henry Fraser MD DOS: 09/13/2019 Medications: Voltare, cadista, levofloxacin, loratadine, Zoloft History This is a 53 year old right handed woman with a history of hypertension, arthritis, metal plate, fibrous dysplasia. This EEG was requested for headaches. EEG Interpretation This EEG was recorded in the awake, drowsy, and sleep states. The awake EEG is characterized by a well-organized background with a well-developed posterior dominant rhythm of 10Hz. There was higher amplitude with periods of bursts of further increased amplitude activity that does not evolve in the alpha and beta frequencies in the left temporal region (maximum T3). Drowsiness was characterized by slowing of the background rhythms. Vertex waves and sleep spindles were seen in the midline head regions. Photic stimulation resulted in a moderate driving response. Hyperventilation resulted in no significant changes. There were no epileptiform abnormalities. The EKG showed a regular rhythm. EEG Classification Breach rhythm EEG Impression This EEG is abnormal. The intermittent higher amplitude left temporal activity could be consistent with breach rhythm. Clinical correlation is required. INTERPRETING NEUROLOGIST: Ayaka Samuel MD, FRCPC Board Certified in Neurology, with special qualification in Child Neurology, and in Clinical Neurophysiology [facility]
== END ==
LOC: NEURO 07:50
PROVIDERS: ATTEND Pediatrics
DX: M85.00 Fibrous dysplasia (monostotic), unspecified site (principal); R41.0 Disorientation, unspecified; R51 Headache
CPT/HCPCS: 95819

== ENCOUNTER 2019-12-15 20:32 | Emergency (ER) | payer OTHER ==
[2019-12-15] MEDS ORDERED: MECLIZINE HCL 25 MG TABLET PO ONE (21:43)
--- NOTE | 2019-12-15 21:53 | ER Document Report ---
ED General - General Chief Complaint: Neck Problem Stated Complaint: SHORTNESS OF BREATH Primary Care Provider: GAIL EDUARDO MD [ACTIVE STAFF] - Follow up as needed Notes: 53 y/o female presenting to the ER with neck pain and dizziness x 2 days. Reports no acute trauma to her neck. Feels like the room is spinning around her with movements, neck pain and dizziness is exacerbated with neck flexion. She also notes some vision blurriness and muscular low back pain. Neck pain has been constant. Her concern was that her dizziness became worse today. Has been sleeping without a pillow the last few nights. Denies any numbness/tingling in extremities. No facial weakness. Denies any fever, chills, headaches. TRAVEL OUTSIDE OF THE [place] IN LAST 30 DAYS: No - Related Data Allergies/Adverse Reactions: Penicillins Allergy (Mild, Verified 12/15/19 20:52) Pruritis Sulfa (Sulfonamide Antibiotics) Allergy (Mild, Verified 12/15/19 20:52) Pruritis shellfish derived [Shellfish Derived] Allergy (Verified 12/15/19 20:52) hives,eyes swell Home Medications: amytriptaline, zoloft Past Medical History - Social History Smoking Status: Former Smoker Frequency of alcohol use: Social Family History: Reviewed & Not Pertinent Patient has homicidal ideation: No - Past Medical History Cardiac Medical History: Reports: Hx Hypercholesterolemia, Hx Hypertension Denies: Hx Coronary Artery Disease, Hx Heart Attack Pulmonary Medical History: Denies: Hx Asthma, Hx Bronchitis, Hx COPD, Hx Pneumonia Neurological Medical History: Denies: Hx Cerebrovascular Accident, Hx Seizures Renal/ Medical History: Reports: Hx Ovarian Cysts. Denies: Hx End Stage Renal Disease, Hx Kidney Stones, Hx Peritoneal Dialysis, Hx Pelvic Inflammatory Disease Malignancy Medical History: Denies: Hx Breast Cancer, Hx Cervical Cancer, Hx Leukemia, Hx Ovarian Cancer GI Medical History: Reports: Other. Denies: Hx Crohn's Disease, Hx Gastroesophageal Reflux Disease, Hx Hiatal Hernia, Hx Irritable Bowel, Hx Liver Failure, Hx Pancreatitis, Hx Ulcer Musculoskeletal Medical History: Reports Hx Arthritis - feet,hands,, Denies Hx Fibromyalgia, Denies Hx Muscular Dystrophy Psychiatric Medical History: Reports: Hx Depression - sometimes will over eat when depressed Denies: Hx Bipolar Disorder, Hx Post Traumatic Stress Disorder, Hx Schizophrenia Traumatic Medical History: Denies: Hx Fractures Infectious Medical History: Denies: Hx HIV Past Surgical History: Reports: Hx Cholecystectomy - has abdominal hernia, Hx Gastric Bypass Surgery, Hx Orthopedic Surgery - fartun foot. Denies: Hx Appendectomy, Hx Bowel Surgery, Hx Section, Hx Colostomy, Hx Coronary Artery Bypass Graft, Hx Herniorrhaphy, Hx Hysterectomy, Hx Mastectomy, Hx Open Heart Surgery, Hx Pacemaker, Hx Tonsillectomy, Hx Tubal Ligation - Immunizations Hx Diphtheria, Pertussis, Tetanus Vaccination: No Review of Systems - Review of Systems Constitutional: No symptoms reported EENT: Blurred vision, Vertigo. denies: Eye pain, Double vision Cardiovascular: No symptoms reported Respiratory: No symptoms reported Gastrointestinal: No symptoms reported Genitourinary: No symptoms reported Musculoskeletal: See HPI Physical Exam - Vital signs Vitals: Resp Pulse Ox 20 92 12/15/19 20:49 12/15/19 20:49 - Notes Notes: Adult General: GENERAL: Alert, interacts well. No acute distress HEAD: Normocephalic, atraumatic EYES: Pupils equal, round and reactive to light. Extraocular movements intact. No nystagmus ENT: Oral mucosa moist, tongue midline. Oropharynx unremarkable. Airway patent. Nares patent, sinuses nontender, ear canals unremarkable, TMs intact. NECK: Full range of motion. Pain and dizziness with neck extension. Supple. Trachea midline. No lymphadenopathy. LUNGS: Clear to auscultation bilaterally, no wheezes, rales, or rhonchi. No respiratory distress. Nontender chest wall. HEART: Regular rate and rhythm. No murmurs, rubs or gallops. GENITOURINARY: Deferred EXTREMITIES: Moves all 4 extremities spontaneously. No cyanosis. BACK: Cervical mid line tenderness, thoracic, lumbar midline tenderness. Lumbar spine tender along paraspinals. No saddle anesthesia. Moves all extremities with full range of motion. NEUROLOGICAL: Alert and oriented x3. Normal speech. Cranial nerves II through XII grossly intact. Strength 5/ 5 in all extremities. PSYCH: Normal affect, normal mood. SKIN: Warm, dry, normal turgor. No rashes or lesions noted. Course - Re-evaluation Re-evalutation: 12/15/19 22:56 X-ray shows straightening of the normal cervical lordosis and no fracture. 12/15/19 23:38 Patient also reports that she has seen an ENT due to her sinuses who reported some abnormalities of her inner ear. Also states she uses voltaren gel for her neck pain which decreases her neck pain significantly but she has run out of the medication a month ago. 12/16/19 01:39 After valium, patient reports neck pain and dizziness has subsided. No dizziness upon going from sitting to standing and no dizziness while walking around room. As patient's symptoms have improved, I do not suspect a cerebellar lesion, but I do recommend patient follow up with her ENT for her dizziness and with family practice for neck pain. Neck pain likely from cervical strain. Will discharge patient with meclinize and valium. Discussed with patient side effects of medication and to not drive while taking medications. - Vital Signs Vital signs: Temp Pulse Resp BP Pulse Ox 98.3 F 68 17 108/80 99 12/15/19 20:52 12/15/19 23:45 12/16/19 03:03 12/16/19 02:02 12/16/19 03:03 - Laboratory Result Diagrams: 12/15/19 22:40 12/15/19 22:40 Laboratory results interpreted by me: 12/15/19 22:40 Sodium 134.5 L BUN 21 H Discharge - Discharge Clinical Impression: Neck pain, Vertigo Condition: Stable Disposition: HOME, SELF-CARE Instructions: Neck Injury (Cervical Strain) ([facility]), Vertigo ([facility]) Additional Instructions: Recommend follow up with ENT in 3-5 days for vertigo and primary care provider in 3-5 days for neck pain. Return precautions discussed to include worsening neck pain or dizziness or development of new symptoms. Continue to make slow positional changes to help alleviate vertigo. Prescriptions: Diazepam [Valium 2 mg Tablet] 2 mg PO Q6HP PRN #12 tablet PRN Reason: Meclizine HCl [Antivert 25 mg Tablet] 25 mg PO TID PRN #15 tablet PRN Reason: Referrals: GAIL EDUARDO MD [ACTIVE STAFF] - Follow up as needed
--- NOTE | 2019-12-15 22:35 | RADIOLOGY REPORT (SQ) ---
EXAM DESCRIPTION: X-rays, three views of the cervical spine CLINICAL HISTORY: 53 years Female, neck pain COMPARISON: None. FINDINGS: Radiopaque foreign body projects over the left side of the temporal aspect of the skull. This is consistent with previous craniotomy. Cervical spine is visualized from C1 through the superior endplate of T1. There is straightening of the normal cervical lordosis. Vertebral body heights and disc spaces are preserved. No fracture. The prevertebral soft tissues are normal. There is a small ossific density seen posterior to the spinous process at T1 consistent with an old avulsion injury. No acute fracture is seen. No significant degenerative change in the cervical spine. IMPRESSION: Straightening of the normal cervical lordosis. No fracture.
[2019-12-15 22:59] LABS: ABSOLUTE BASOPHILS # (AUTO) 0.1 10^3/uL (0.0-0.2); ABSOLUTE EOSINOPHILS # (AUTO) 0.2 10^3/uL (0.0-0.6); ABSOLUTE LYMPHOCYTES (AUTO) 2.6 10^3/uL (0.5-4.7); ABSOLUTE MONOCYTES (AUTO) 0.6 10^3/uL (0.1-1.4); BASOPHILS % (AUTO) 0.8 % (0-2); EOSINOPHILS % (AUTO) 2.3 % (0-6); HEMATOCRIT 40.2 % (36.0-47.0); LYMPHOCYTES % (AUTO) 35.1 % (13-45); MEAN CORPUSCULAR HEMOGLOBIN 32.1 pg (27.0-33.4); MEAN CORPUSCULAR HGB CONC 34.7 g/dL (32.0-36.0); MEAN CORPUSCULAR VOLUME 93 fl (80-97); MONOCYTES % (AUTO) 8.4 % (3-13); PLATELET COUNT 331 10^3/uL (150-450); RED BLOOD COUNT 4.35 10^6/uL (3.72-5.28); RED CELL DISTRIBUTION WIDTH 13.2 % (11.5-14.0); SEGMENTED NEUTROPHILS % (AUTO) 53.4 % (42-78); TOTAL CELLS COUNTED % (AUTO) 100 %; WHITE BLOOD COUNT 7.5 10^3/uL (4.0-10.5)
[2019-12-15 23:13] LABS: ALBUMIN 4.2 g/dL (3.5-5.0); ALKALINE PHOSPHATASE 51 U/L (38-126); ANION GAP 7 (5-19); ASPARTATE AMINO TRANSFERASE 27 U/L (14-36); BILIRUBIN,TOTAL 0.3 mg/dL (0.2-1.3); BLOOD UREA NITROGEN 21 mg/dL (7-20); CALCIUM 9.6 mg/dL (8.4-10.2); CARBON DIOXIDE 27 mmol/L (22-30); CHLORIDE 101 mmol/L (98-107); GLUCOSE 96 mg/dL (75-110); POTASSIUM 4.2 mmol/L (3.6-5.0); TOTAL PROTEIN 6.8 g/dL (6.3-8.2)
[2019-12-15] MEDS ORDERED: DIAZEPAM 5 MG TABLET PO ONE (23:41)
[2019-12-16 00:12] LABS: APPEARANCE,URINE CLEAR; BILIRUBIN,URINE NEGATIVE (NEGATIVE); COLOR,URINE STRAW; GLUCOSE, URINE NEGATIVE (NEGATIVE); KETONES,URINE NEGATIVE (NEGATIVE); LEUKOCYTE ESTERASE,URINE NEGATIVE (NEGATIVE); NITRITE,URINE NEGATIVE (NEGATIVE); PROTEIN,URINE NEGATIVE (NEGATIVE); UROBILINOGEN,URINE NEGATIVE mg/dL (<2.0)
[2019-12-16 02:36] VITALS: BP 108/80
== END 2019-12-16 03:20 | disposition home or self-care (01) ==
LOC: ER 20:32
DX: R42 Dizziness and giddiness (principal); M54.2 Cervicalgia; H53.8 Other visual disturbances; M79.18 Myalgia, other site; I10 Essential (primary) hypertension; F32.9 Major depressive disorder, single episode, unspecified; Z79.899 Other long term (current) drug therapy; Z87.891 Personal history of nicotine dependence; Z88.0 Allergy status to penicillin; Z88.2 Allergy status to sulfonamides; Z91.013 Allergy to seafood
CPT/HCPCS: 36415; 72040; 80053; 81001; 85025; 99284

== ENCOUNTER → 2020-01-02 | Outpatient (CLI) | payer OTHER | LOC: RAD 08:34 | PROVIDERS: ATTEND Otolaryngology | DX: J32.3 Chronic sphenoidal sinusitis (principal) | CPT/HCPCS: 70486 ==

== ENCOUNTER 2020-07-17 12:19 | Emergency (ER) | payer OTHER ==
[2020-07-17] MEDS ORDERED: METOCLOPRAMIDE HCL INJ/PF 10 MG/2 ML SDV IV ONE (12:43)
[2020-07-17] MEDS ORDERED: DIPHENHYDRAMINE HCL 50 MG/ML VIAL IV ONE (12:43)
[2020-07-17] MEDS ORDERED: BENZTROPINE MESYLATE INJ 2 MG/2 ML AMPULE IV PRN (12:43)
--- NOTE | 2020-07-17 12:43 | ER Document Report ---
ED Medical Screen (RME) - General Chief Complaint: Possible Overdose Stated Complaint: POSSIBLE OVERDOSE/ADHD MEDS Time Seen by Provider: 07/17/20 12:31 Primary Care Provider: HUSSAIN BARRIGA PA-C [Primary Care Provider] - Follow up as needed TRAVEL OUTSIDE OF THE [place] IN LAST 30 DAYS: No - HPI Notes: 07/17/20 12:35 54-year-old female with a history of depression, anxiety, SI, migraines and insomnia presents to the emergency room today with her for evaluation of taking (7) tablets of 10 mg of foclin XR (her daughters ADHD medication), so she could "fall asleep for 24 hours" after consuming wine in the evening. Patient states that she did get into an argument with her daughter, she felt very depressed. Patient is endorsing SI for the last 2 years, denies any HI. Patient since that time has had headaches, "making funny faces" and clenching her jaws since she took the medication. Patient does take Cymbalta, she states she is down to 1 tablet a day. Patient reports she has been under a lot of stress. Reports her HR was 126 last night. I have greeted and performed a rapid initial assessment of this patient. A comprehensive ED assessment and evaluation of the patient, analysis of test results and completion of the medical decision making process will be conducted by additional ED providers. PHYSICAL EXAMINATION: GENERAL: Well-appearing, well-nourished and in mild distress. HEAD: Atraumatic, normocephalic. EYES: Pupils equal round extraocular movements intact, conjunctiva are normal. NECK: Normal range of motion CV: s1, s2 regular LUNGS: No respiratory distress Musculoskeletal: Normal range of motion NEUROLOGICAL: Involuntary twitching of face and upper extremities. Orientated to person place and time. SKIN: Warm, Dry, normal turgor, no rashes or lesions noted. The patient was evaluated during a global COVID-19 pandemic and that diagnosis was suspected/considered upon their initial presentation. Their evaluation, moncho atment and testing was consistent with current guidelines for patients who present with complaints or symptoms and may be related to COVID-19. 07/17/20 12:51 - Related Data Allergies/Adverse Reactions: Penicillins Allergy (Mild, Verified 12/15/19 20:52) Pruritis Sulfa (Sulfonamide Antibiotics) Allergy (Mild, Verified 12/15/19 20:52) Pruritis shellfish derived [Shellfish Derived] Allergy (Verified 12/15/19 20:52) hives,eyes swell Past Medical History - Past Medical History Cardiac Medical History: Reports: Hx Hypercholesterolemia, Hx Hypertension Denies: Hx Coronary Artery Disease, Hx Heart Attack Pulmonary Medical History: Denies: Hx Asthma, Hx Bronchitis, Hx COPD, Hx Pneumonia Neurological Medical History: Denies: Hx Cerebrovascular Accident, Hx Seizures Renal/ Medical History: Reports: Hx Ovarian Cysts. Denies: Hx End Stage Renal Disease, Hx Kidney Stones, Hx Peritoneal Dialysis, Hx Pelvic Inflammatory Disease Malignancy Medical History: Denies: Hx Breast Cancer, Hx Cervical Cancer, Hx Leukemia, Hx Ovarian Cancer GI Medical History: Denies: Hx Crohn's Disease, Hx Gastroesophageal Reflux Disease, Hx Hiatal Hernia, Hx Irritable Bowel, Hx Liver Failure, Hx Pancreatitis, Hx Ulcer Musculoskeltal Medical History: Reports Hx Arthritis - feet,hands,, Denies Hx Fibromyalgia, Denies Hx Muscular Dystrophy Psychiatric Medical History: Reports: Hx Depression - sometimes will over eat when depressed Denies: Hx Bipolar Disorder, Hx Post Traumatic Stress Disorder, Hx Schizophrenia Traumatic Medical History: Denies: Hx Fractures Infectious Medical History: Denies: Hx HIV Past Surgical History: Reports: Hx Cholecystectomy - has abdominal hernia, Hx Gastric Bypass Surgery, Hx Orthopedic Surgery - fartun foot. Denies: Hx Appendectomy, Hx Bowel Surgery, Hx Section, Hx Colostomy, Hx Coronary Artery Bypass Graft, Hx Herniorrhaphy, Hx Hysterectomy, Hx Mastectomy, Hx Open Heart Surgery, Hx Pacemaker, Hx Tonsillectomy, Hx Tubal Ligation - Immunizations Hx Diphtheria, Pertussis, Tetanus Vaccination: No Doctor's Discharge - Discharge Referrals: HUSSAIN BARRIGA PA-C [Primary Care Provider] - Follow up as needed
--- NOTE | 2020-07-17 13:29 | RADIOLOGY REPORT (SQ) ---
EXAM DESCRIPTION: CT HEAD WITHOUT IMAGES COMPLETED DATE/TIME: 07/17/2020 1:15 pm REASON FOR STUDY: headache, dystonic reaction COMPARISON: None. TECHNIQUE: Axial images acquired through the brain without intravenous contrast. Images reviewed wi th bone, brain and subdural windows. Additional sagittal and coronal reconstructions were generated. Images stored on PACS. All CT scanners at this facility use dose modulation, iterative reconstruction, and/or weight based d osing when appropriate to reduce radiation dose to as low as reasonably achievable (ALARA). [facility]: Dose Right [facility]: CareDose [facility]: Dose Right [facility]: Teradose 4D [facility]: Smart Curb ([employer] RADIATION DOSE: CT Rad equipment meets quality standard of care and radiation dose reduction techniq ues were employed. CTDIvol: 53.2 mGy. DLP: 964 mGy-cm. mGy. LIMITATIONS: None. FINDINGS: VENTRICLES: Normal size and contour. CEREBRUM: No masses. No hemorrhage. No midline shift. No evidence for acute infarction. Normal gra y/white matter differentiation. No areas of low density in the white matter. CEREBELLUM: No masses. No hemorrhage. No alteration of density. No evidence for acute infarction. EXTRAAXIAL SPACES: No fluid collections. No masses. ORBITS AND GLOBE: No intra- or extraconal masses. Normal contour of globe without masses. CALVARIUM: No fracture. PARANASAL SINUSES: No fluid or mucosal thickening. SOFT TISSUES: No mass or hematoma. OTHER: No other significant finding. IMPRESSION: NORMAL BRAIN CT WITHOUT CONTRAST. EVIDENCE OF ACUTE STROKE: NO. COMMENT: Quality ID # [id number]: Final reports with documentation of one or more dose reduction techniques (e.g., Automated exposure control, adjustment of the mA and/or kV according to patient size, use of iterative reconstruction technique) TECHNICAL DOCUMENTATION: JOB ID: [id number] 2010 [employer]- All Rights Reserved Reading location - IP/workstation name: [email or web address]
--- NOTE | 2020-07-17 13:45 | ER Document Report ---
ED Psych Disorder / Suicide <GEOVANY FLOYD - Last Filed: 07/17/20 16:48> - General TRAVEL OUTSIDE OF THE [place] IN LAST 30 DAYS: No <VINNY JIMÉNEZ - Last Filed: 07/17/20 21:11> - General Chief Complaint: Overdose Stated Complaint: POSSIBLE OVERDOSE/ADHD MEDS Time Seen by Provider: 07/17/20 12:31 Primary Care Provider: [facility] [Outside] - Follow up in 1 week [facility] [Outside] - Follow up in 1 week [facility] Mobile Crisis [Outside] - Follow up in 1 week HUSSAIN BARRIGA PA-C [Primary Care Provider] - Follow up in 3-5 days - HPI Notes: 54-year old female to the emergency department with complaints of overdose night. Apparently, the patient was drinking and then took 7 tablets of 10 mg Focalin. She states that she had been having a stressful day particularly with her daughter. She felt a little down and she decided that she wanted to take these pills to help her sleep. She states "all I wanted to do was sleep for 24 hours and not be disturbed". She states the day before she had been awoken by her daughter drying her out of the bed to try to help her throughout her boyfriend from home. Patient states that she is occasionally had thoughts of wanting to hurt herself but she does not really feel like that was the situation. She states that she does feel like she just wanted to sleep. She does report that she has had a facial twitching since taking these medicines. She does take Cymbalta. She was nearly out of her prescription so she actually just recently scaled back to 1 a day instead of 2 a day. She takes no other psychotropic medicines. Occasionally she will take an Ambien but she has not had that filled for over 2 months. Patient is accompanied by her who apparently called poison control when he found out which she had taken and they instructed him to come to the emergency department. From triage Chandra Barrios Reglan was ordered to try to help with her facial twitch. I called poison control and talk to them. They suggest monitoring until 6 PM. They suggest Ativan for the facial twitch. (VINNY JIMÉNEZ) - Related Data Allergies/Adverse Reactions: Penicillins Allergy (Mild, Verified 12/15/19 20:52) Pruritis Sulfa (Sulfonamide Antibiotics) Allergy (Mild, Verified 12/15/19 20:52) Pruritis shellfish derived [Shellfish Derived] Allergy (Verified 12/15/19 20:52) hives,eyes swell Past Medical History - General Information source: Patient, Relative - - Social History Smoking Status: Never Smoker Chew tobacco use (# tins/day): No Frequency of alcohol use: Daily3 glasses a night Drug Abuse: None Family History: Reviewed & Not Pertinent Patient has homicidal ideation: No - Past Medical History Cardiac Medical History: Reports: Hx Hypercholesterolemia, Hx Hypertension Denies: Hx Coronary Artery Disease, Hx Heart Attack Pulmonary Medical History: Denies: Hx Asthma, Hx Bronchitis, Hx COPD, Hx Pneumonia Neurological Medical History: Denies: Hx Cerebrovascular Accident, Hx Seizures Renal/ Medical History: Reports: Hx Ovarian Cysts. Denies: Hx End Stage Renal Disease, Hx Kidney Stones, Hx Peritoneal Dialysis, Hx Pelvic Inflammatory Disease Malignancy Medical History: Denies: Hx Breast Cancer, Hx Cervical Cancer, Hx Leukemia, Hx Ovarian Cancer GI Medical History: Denies: Hx Crohn's Disease, Hx Gastroesophageal Reflux Disease, Hx Hiatal Hernia, Hx Irritable Bowel, Hx Liver Failure, Hx Pancreatitis, Hx Ulcer Musculoskeletal Medical History: Reports Hx Arthritis - feet,hands,, Denies Hx Fibromyalgia, Denies Hx Muscular Dystrophy Psychiatric Medical History: Reports: Hx Depression - sometimes will over eat when depressed Denies: Hx Bipolar Disorder, Hx Post Traumatic Stress Disorder, Hx Schiz ophrenia Traumatic Medical History: Denies: Hx Fractures Infectious Medical History: Denies: Hx HIV Past Surgical History: Reports: Hx Cholecystectomy - has abdominal hernia, Hx Gastric Bypass Surgery, Hx Orthopedic Surgery - fartun foot. Denies: Hx Appendectomy, Hx Bowel Surgery, Hx Section, Hx Colostomy, Hx Coronary Artery Bypass Graft, Hx Herniorrhaphy, Hx Hysterectomy, Hx Mastectomy, Hx Open Heart Surgery, Hx Pacemaker, Hx Tonsillectomy, Hx Tubal Ligation - Immunizations Hx Diphtheria, Pertussis, Tetanus Vaccination: No <VINNY JIMÉNEZ - Last Filed: 07/17/20 21:11> Review of Systems - Review of Systems Constitutional: denies: Chills, Fever EENT: Other - Involuntary facial twitching Cardiovascular: See HPI. denies: Chest pain, Palpitations, Syncope, Dizziness, Lightheaded Respiratory: denies: Cough, Short of breath Gastrointestinal: denies: Abdominal pain, Diarrhea, Nausea, Vomiting Genitourinary: No symptoms reported Female Genitourinary: No symptoms reported Musculoskeletal: No symptoms reported Skin: No symptoms reported Hematologic/Lymphatic: No symptoms reported Neurological/Psychological: See HPI -: Yes All other systems reviewed and negative <VINNY JIMÉNEZ - Last Filed: 07/17/20 21:11> Physical Exam - Vital signs Interpretation: Normal <VINNY JIMÉNEZ - Last Filed: 07/17/20 21:11> - Vital signs Vitals: Temp 98.1 F 07/17/20 12:27 Temp Pulse Resp BP Pulse Ox 97.4 F 82 17 130/90 H 97 07/17/20 18:40 07/17/20 18:40 07/17/20 18:40 07/17/20 18:40 07/17/20 18:40 Intake & Output 07/16/20 07/17/20 07/18/20 06:59 06:59 06:59 Weight 80.8 kg Weight/Height Weight 80.8 kg Height 5 ft 5 in (VINNY JIMÉNEZ) - Notes Notes: PHYSICAL EXAMINATION: GENERAL: Well-appearing, well-nourished and in no acute distress. HEAD: Atraumatic, normocephalic. EYES: Pupils equal round and reactive to light, extraocular movements intact, sclera anicteric, conjunctiva are normal. ENT: nares patent, oropharynx clear without exudates. Moist mucous membranes. TMs clear bilaterally; there is a notable dystonic movement. Patient will grimace and scratch her cheeks up but it does not appear to be voluntary. NECK: Normal range of motion, supple without lymphadenopathy LUNGS: Breath sounds clear to auscultation bilaterally and equal. No wheezes rales or rhonchi. HEART: Regular rate and rhythm without murmurs. No pitting edema ABDOMEN: Soft, nontender, normoactive bowel sounds. No guarding, no rebound. No masses appreciated. EXTREMITIES: Normal range of motion, no pitting or edema. No cyanosis. NEUROLOGICAL: Cranial nerves II through XII are intact. No pronator drift. Normal [id number]. No leg drift. Normal [id number]. Alert and oriented x3. PSYCH: Very blunted affect, admits to occasional thoughts of suicidal ideation but states she does not feel like she was trying to kill herself last night. She states that she just wanted to sleep for at least 24 hours without being disturbed. SKIN: Warm, Dry, normal turgor, no rashes or lesions noted. (VINNY JIMÉNEZ) Course - Laboratory Results Result Diagrams: 07/17/20 13:34 07/17/20 13:34 <GEOVANY FLOYD - Last Filed: 07/17/20 16:48> - Laboratory Results Result Diagrams: 07/17/20 13:34 07/17/20 13:34 Critical Laboratory Results Reviewed: No Critical Results - Radiology Results Critical Radiology Results Reviewed: No Critical Results <VINNY JIMÉNEZ - Last Filed: 07/17/20 21:11> - Re-evaluation Re-evalutation: 07/17/20 I informed the patient and that we will need to do monitoring until 6 PM per poison control's recommendations. I spoke with Reyna at poison control and we discussed the facial dystonic movement, we will give 1 mg of Ativan to try to help stop that. She is aware that Benadryl Cogentin and Reglan was given by triage provider. We will not give any further Reglan. Behavioral health has seen the patient. They do not feel like she meets IVC criteria. They feel like she does have a history of depression and needs to have her Cymbalta fully optimized again. However they do not feel like she is a harm to herself. Plan will be to discharge home with Cymbalta prescription for 30 mg twice a day. Rounded on patient and updated her about the plan. She has been monitored until 6 PM and has done well. Dystonic movement is significantly reduced after Ativan. Only occasionally and mildly occurring. We will have patient and her follow-up outpatient with [facility]. I have encouraged him to return at any time should anything change. They agree with the plan. (VINNY JIMÉNEZ) - Vital Signs Vital signs: Temp Pulse Resp BP Pulse Ox 97.4 F 82 17 130/90 H 97 07/17/20 18:40 07/17/20 18:40 07/17/20 18:40 07/17/20 18:40 07/17/20 18:40 - Laboratory Results Laboratory Results Interpreted: 07/17/20 13:34 Sodium 133.1 L AST 50 H Salicylates < 1.0 L Acetaminophen < 10 L - EKG Interpretation by Me Additional EKG results interpreted by me: 07/17/20 Rate: 85 Rhythm: Sinus Interpretation: No STEMI, no ST changes, normal axis, no LVH. QTC is 433 and QRS is 72 No significant change from past EKG on November 2018 (VINNY JIMÉNEZ) Discharge <GEOVANY FLOYD - Last Filed: 07/17/20 16:48> <VINNY JIMÉNEZ - Last Filed: 07/17/20 21:11> - Discharge Clinical Impression: Dystonic drug reaction Depression Qualifiers: Depression Type: unspecified Qualified Code(s): F32.9 - Major depressive disorder, single episode, unspecified Overdose Qualifiers: Encounter type: initial encounter Injury intent: accidental or unintentional Qualified Code(s): T50.901A - Poisoning by unspecified drugs, medicaments and biological substances, accidental (unintentional), initial encounter Condition: Stable Disposition: HOME, SELF-CARE Additional Instructions: You have been evaluated by both medical and behavioral health teams for suicidal ideation and suspected overdose. You have been deemed appropriate for discharge. While in the emergency department you received the following services/or had access to: Medical screening and assessment, nursing services, d ietary services, pharmacological services, one-on-one counseling and/or psychotherapy, environmental services, and continuous observation by a patient environmental safety specialist. You should continue your home medications as prescribed and follow up with your medication provider. Suicidal Ideation Suicidal ideation is a common medical term for thoughts about suicide, which may be as detailed as a formulated plan, without the suicidal act itself. Although most people who undergo suicidal ideation do not commit suicide, some go on to make suicide attempts. The range of suicidal ideation varies greatly from fleeting to detailed planning, role playing, and unsuccessful attempts. While thoughts about suicide are common, most people do not carry out serious actions to commit suicide. However, based upon your evaluation and discussion with you, we believe you are not currently at risk to act upon your thoughts of suicide. Therefore, you will be discharged home. Follow up care: You are currently involved in medication management with [facility] and are highly recommended to continue outpatient services. You are also recommended to start therapy with your provider or a new provider in the community. You have been given a community outpatient referral list to include phone numbers for [facility] and [facility] mobile crisis. Highlighted are outpatient providers who take . If you experience worsening or a significant change in your symptoms, notify the physician immediately, utilize mobile crisis, or return to the Emergency Department at any time for re-evaluation. Dr. Fink was consulted to care management of this patient; attending physicians in agreement with recommendati ons and disposition. Prescriptions: Duloxetine HCl [Cymbalta] 30 mg PO BID #28 capsule. Referrals: [facility] [Outside] - Follow up in 1 week [facility] [Outside] - Follow up in 1 week [facility] [Outside] - Follow up in 1 week HUSSAIN BARRIGA PA-C [Primary Care Provider] - Follow up in 3-5 days
[2020-07-17 13:55] LABS: ABSOLUTE BASOPHILS # (AUTO) 0.1 10^3/uL (0.0-0.2); ABSOLUTE MONOCYTES (AUTO) 0.7 10^3/uL (0.1-1.4); ABSOLUTE NEUT (AUTO) 5.8 10^3/uL (1.7-8.2); BASOPHILS % (AUTO) 0.7 % (0-2); EOSINOPHILS % (AUTO) 0.4 % (0-6); HEMATOCRIT 40.5 % (36.0-47.0); HEMOGLOBIN 14.2 g/dL (12.0-15.5); MEAN CORPUSCULAR HEMOGLOBIN 31.7 pg (27.0-33.4); MEAN CORPUSCULAR VOLUME 91 fl (80-97); MONOCYTES % (AUTO) 7.7 % (3-13); PLATELET COUNT 396 10^3/uL (150-450); RED BLOOD COUNT 4.47 10^6/uL (3.72-5.28); RED CELL DISTRIBUTION WIDTH 12.3 % (11.5-14.0); SEGMENTED NEUTROPHILS % (AUTO) 68.2 % (42-78); TOTAL CELLS COUNTED % (AUTO) 100 %; WHITE BLOOD COUNT 8.6 10^3/uL (4.0-10.5)
[2020-07-17 14:07] LABS: APPEARANCE,URINE CLEAR; BILIRUBIN,URINE NEGATIVE (NEGATIVE); COLOR,URINE STRAW; GLUCOSE, URINE NEGATIVE (NEGATIVE); KETONES,URINE NEGATIVE (NEGATIVE); LEUKOCYTE ESTERASE,URINE NEGATIVE (NEGATIVE); NITRITE,URINE NEGATIVE (NEGATIVE); PROTEIN,URINE NEGATIVE (NEGATIVE); URINE SPECIFIC GRAVITY 1.005; UROBILINOGEN,URINE NEGATIVE mg/dL (<2.0)
[2020-07-17 14:20] LABS: ALBUMIN 4.1 g/dL (3.5-5.0); ALKALINE PHOSPHATASE 78 U/L (38-126); ANION GAP 7 (5-19); ASPARTATE AMINO TRANSFERASE 50 U/L (14-36); BILIRUBIN,DIRECT 0.1 mg/dL (0.0-0.4); BILIRUBIN,TOTAL 0.5 mg/dL (0.2-1.3); BLOOD UREA NITROGEN 11 mg/dL (7-20); CALCIUM 9.3 mg/dL (8.4-10.2); CARBON DIOXIDE 28 mmol/L (22-30); CHLORIDE 98 mmol/L (98-107); GLUCOSE 85 mg/dL (75-110); POTASSIUM 4.7 mmol/L (3.6-5.0)
[2020-07-17 14:24] LABS: ACETAMINOPHEN < 10 ug/mL (10-30); ALCOHOL < 10 mg/dL (NONE DETECTED); SALICYLATE < 1.0 mg/dL (2.0-20.0)
[2020-07-17 14:27] LABS: URINE AMPHETAMINES SCREEN NEGATIVE; URINE BARBITURATES SCREEN NEGATIVE; URINE BENZODIAZEPINES SCREEN NEGATIVE; URINE COCAINE SCREEN NEGATIVE; URINE MARIJUANA (THC) SCREEN NEGATIVE; URINE METHADONE SCREEN NEGATIVE; URINE PHENCYCLIDINE SCREEN NEGATIVE
[2020-07-17] MEDS ORDERED: LORAZEPAM INJ 2 MG/1 ML VIAL IV ONE (14:41)
[2020-07-17 18:41] VITALS: BP 130/90
--- NOTE | 2020-07-17 21:08 | EKG REPORT ---
SEVERITY:- BORDERLINE ECG - SINUS RHYTHM PROBABLE LEFT ATRIAL ABNORMALITY : Confirmed by: Scooter Duran MD 17-Jul-2020 21:08:22
--- NOTE | 2020-07-17 22:53 | PSYCHOLOGICAL NOTE ---
Psych Note - Psych Note Date seen by psych provider: 07/17/20 Time seen by psych provider: 14:31 Psych Note: Reason for Consult: suicidal ideation, possible overdose Consent permissions: Amanda [id number] Patient is a 54 year old female who was admitted to the ED via POV for an overdose. Patient reports taking 7 of her granddaughters Focalin in attempt to sleep. She denies suicidal ideation, plan, and intent. She reports history of sleep impairments and has taken Ambien in the past, however often goes off of it for periods of time in fear of becoming addicted. Patient reports going to [facility] for medication management and is prescribed Cymbalta 30mg twice in the morning and once at night. She has only been taking 2 pills a day, however in the past week has only been taking one. She reports wanting to get through the holidays without having to go back to [facility] and was trying to make her medication last. She did report feeling more depressed since taking less. Patient denies history of suicide attempts and denies inpatient hospitalizations. Patient states she has had passive suicidal ideation, but denies plan and intent. Denies current SI, plan, and intent as well. She reports feeling depressed and stressed. Patient states her daughter at home has MS. She also reports daughter and boyfriend argue often and patient gets brought into the middle of it. Patient reports ongoing anxiety and stress due to family related issues. Collateral: amanda, [id number] (talked outside the room) He reports patient is depressed. He states she has no energy and is always down. states he does not feel like patient is trying to end her life. He reports she was drinking wine and after her daughter and boyfriend got into a fight, she wanted to sleep. He states she only slept for 10-20 minutes. He states there are multiple stressors in the home and patient becomes anxious and worried about everything going on in the world, ie politics and watching the news. He reports patient was taking one pill in the morning and one at night and recently was taking less, but states they both often forget to take medications and need to remind each other. reports he feels safe taking patient home and does not feel like she is a danger to self. Patient was alert and oriented to self, person, place, time and situation. Mood was euphoric with congruent affect. She denies current suicidal and homicidal ideation, plan, and intent. Patient did not appear to be responding to internal stimuli as evidenced by fair eye contact and answering questions appropriately when addressed. Thought processes are linear and organized. Conversational speech was within normal limits for rate, tone and prosody. Intellectual abilities are estimated to be average. Insight and judgment are fair as evidenced by realizing she should not have taken someone elses medications and impulse control was poor as evidenced by taking medications not prescribed to her. Patient engages appropriately. She demonstrates future forward goal o riented thinking as she talks about wanting to start therapy. Clinical Presentation: depression, medication misuse IVC Criteria per [facility] 122C Dangerous to others Within the relevant past the individual No has inflicted or attempted to inflict or threatened to inflict serious bodily harm on another AND No that there is a reasonable probability that this conduct will be repeated. OR No has acted in such a way as to create a substantial risk of serious bodily harm to another AND No that there is a reasonable probability that this conduct will be repeated. OR No has engaged in extreme destruction of property AND NO that there is a reasonable probability that this conduct will be repeated. Previous episodes of dangerousness to others, when applicable, may be considered when determining reasonable probability of future dangerous conduct. Clear, cogent, and convincing evidence that an individual has committed a homicide in the relevant past is prima facie evidence of dangerousness to others. Dangerous to self Within the relevant past the individual has done any of the following: acted in such a way as to show ALL of the following: No The individual would be unable without care, supervision, and the continued assistance of others not otherwise available, to exercise self- control, judgment, and discretion in the conduct of the individual's daily re sponsibilities and social relations or to satisfy the individual's need for nourishment, personal or medical care, [place] [facility], or self-protection and safety. AND No There is a reasonable probability of the individual suffering serious physical debilitation within the near future unless adequate treatment is given. A showing of behavior that is grossly irrational, of actions that the individual is unable to control, of behavior that is grossly inappropriate to the situation, or of other evidence of severely impaired insight and judgment shall create a prima facie inference that the individual is unable to care for himself or herself. OR No has attempted suicide or threatened suicide Patient took 7 Focalin to attempt to sleep AND No that there is a reasonable probability of suicide unless adequate treatment is given Patient denies attempting suicide; denies current SI, plan, and intent OR No has mutilated himself or herself or attempted to mutilate himself or herself AND No that there is a reasonable probability of serious self-mutilation unless adequate treatment is given. NOTE: Previous episodes of dangerousness to self, when applicable, may be considered when determining reasonable probability of physical debilitation, suicide, or self-mutilation. Medication recommendations per [facility] contracted psychiatrist, Dr. Alida OSBORNE, are as follows: continue home medication of Cymbalta Impression\plan: Patient is cleared from psychiatric services. She was admitted to the ED for misuse of medications. Patient took 7 Focalin pills that belonged to her granddaughter for ADHD. She reported she has been very stressed with her family, primarily adult daughter in the home and daughters boyfriend who bicker often, and was wanting to sleep and not listen to bickering. Patient reports she was drinking a few glasses of wine and after daughter and boyfriend started to argue, she decided to take Focalin, assuming it would help her sleep. She states she used to take Ambien, on and off, for sleep, however is afraid of addiction and often stops Ambien for periods of time. She has not been prescribed Ambien since April and does not have any at home. Patients m edication provider is [facility] and patient is willing to begin therapy. Her does not feel like she was attempting suicide and reports he feels safe taking her home. Patient is recommended to continue Cymbalta medication, as prescribed, and return to [facility] for follow up or medication adjustments. Patients agrees to lock medications at this time and give patient access to medications when needed and under supervision. Patient agrees. Patient was provided community resource sheet for outpatient therapy and highlighted were places who also accept if she wanted to use somewhere other than [facility]. Mobile crisis for [facility] and [facility] was also highlighted on this sheet. She is recommended to start therapy, at least weekly, in order to learn how to identify triggers and learn healthy coping skills. She was informed if symptoms return or worsen to return to the ED, utilize mobile crisis, or see her provider. Patient's is at bedside. He agrees to be part of discharge plan of care and will remain at the ED until discharged to take patient home. Dr. Fink was consulted to care management of this patient; attending physicians in agreement with recommendations and disposition.
== END 2020-07-17 18:44 | disposition home or self-care (01) ==
LOC: ER 12:19
DX: T43.631A Poisoning by methylphenidate, accidental (unintentional), initial encounter (principal); G24.09 Other drug induced dystonia; Y92.009 Unspecified place in unspecified non-institutional (private) residence as the place of occurrence of the external cause; F32.9 Major depressive disorder, single episode, unspecified; F41.9 Anxiety disorder, unspecified; R45.851 Suicidal ideations; E78.00 Pure hypercholesterolemia, unspecified; I10 Essential (primary) hypertension; Z88.0 Allergy status to penicillin; Z88.2 Allergy status to sulfonamides
CPT/HCPCS: 93005; 99285; 96374; 96375; 36415; 80307 ×4; 84703; 85025; 80053; 81001; 84484; 70450; 93010; J0515; J1200; J2765; J2060